=== PATIENT | male | born 1960 | race Caucasian/White ===

== ENCOUNTER 2017-12-06 12:28 | Emergency (ER) | payer OTHER ==
[2017-12-06 13:14] LABS: ABSOLUTE BASOPHILS # (AUTO) 0.1 10^3/uL (0.0-0.2); ABSOLUTE MONOCYTES (AUTO) 0.8 10^3/uL (0.1-1.4); ABSOLUTE NEUT (AUTO) 9.4 10^3/uL (1.7-8.2); BASOPHILS % (AUTO) 0.5 % (0-2); EOSINOPHILS % (AUTO) 0.2 % (0-6); HEMATOCRIT 43.1 % (37.9-51.0); HEMOGLOBIN 14.2 g/dL (13.5-17.0); MEAN CORPUSCULAR HEMOGLOBIN 31.2 pg (27.0-33.4); MEAN CORPUSCULAR VOLUME 95 fl (80-97); MONOCYTES % (AUTO) 7.3 % (3-13); PLATELET COUNT 258 10^3/uL (150-450); RED BLOOD COUNT 4.55 10^6/uL (4.35-5.55); RED CELL DISTRIBUTION WIDTH 13.3 % (11.5-14.0); TOTAL CELLS COUNTED % (AUTO) 100 %; WHITE BLOOD COUNT 11.3 10^3/uL (4.0-10.5)
[2017-12-06 13:18] LABS: ALANINE AMINOTRANSFERASE 38 U/L (21-72); ALKALINE PHOSPHATASE 64 U/L (38-126); ANION GAP 6 (5-19); ASPARTATE AMINO TRANSFERASE 27 U/L (17-59); BILIRUBIN,DIRECT 0.1 mg/dL (0.0-0.4); BILIRUBIN,TOTAL 0.6 mg/dL (0.2-1.3); BLOOD UREA NITROGEN 23 mg/dL (7-20); CALCIUM 9.2 mg/dL (8.4-10.2); CARBON DIOXIDE 30 mmol/L (22-30); CHLORIDE 108 mmol/L (98-107); GLUCOSE 109 mg/dL (75-110); POTASSIUM 4.8 mmol/L (3.6-5.0); TOTAL PROTEIN 6.2 g/dL (6.3-8.2)
--- NOTE | 2017-12-06 13:25 | RADIOLOGY REPORT (SQ) ---
EXAM DESCRIPTION: CHEST SINGLE VIEW COMPLETED DATE/TIME: 12/06/2017 1:14 pm REASON FOR STUDY: syncope COMPARISON: None. EXAM PARAMETERS: NUMBER OF VIEWS: One view. TECHNIQUE: Single frontal radiographic view of the chest acquired. RADIATION DOSE: NA LIMITATIONS: None. FINDINGS: LUNGS AND PLEURA: No opacities, masses or pneumothorax. No pleural effusion. MEDIASTINUM AND HILAR STRUCTURES: No masses. Contour normal. HEART AND VASCULAR STRUCTURES: Heart normal in size. Normal vasculature. BONES: No acute findings. HARDWARE: Left dual lead pacer with leads overlying right atrium and right ventricle. OTHER: No other significant finding. IMPRESSION: NO ACUTE RADIOGRAPHIC FINDING IN THE CHEST. TECHNICAL DOCUMENTATION: JOB ID: [id number] [employer]- All Rights Reserved Reading location - IP/workstation name: [email or web address]
[2017-12-06] MEDS ORDERED: NORMAL SALINE 1000 ML 1,000 ML IV ONE (13:39)
--- NOTE | 2017-12-06 13:39 | ER Document Report ---
ED Syncope and Near Syncope - General Mode of Arrival: Medic Information source: Patient, Relative - at bedside TRAVEL OUTSIDE OF THE [place] IN LAST 30 DAYS: No <CECILY LARIOS - Last Filed: 12/06/17 13:39> <KASSANDRA WHEELER - Last Filed: 12/09/17 09:27> - General Chief Complaint: Syncope Stated Complaint: POSSIBLE SYNCOPE Time Seen by Provider: 12/06/17 12:59 Notes: Patient is a 56-year-old male on Brilinta and Aspirin secondary to DC (Sep 2015 ) that presents to the emergency department today with complaints of a nosebleed. Patient states that he had a nosebleed yesterday for approximately 40 minutes which stopped spontaneously. This morning when bending over the sink making his coffee at 0730 his nose began bleeding again. Patient states he was unable to get the bleeding to stop today with pinching and using ice so he went to an ENT doctor associated with [facility] on [address] prior to arrival. at bedside states that "the doctor said there was nothing definite bleeding but she cauterized the area that she thought was causing the bleeding which did stop it". Patient states that after this procedure he vomited up blood which the ENT stated was somewhat normal after having blood in the stomach along with lidocaine for the procedure. Patient states after vomiting he began feeling "flushed, woozy, and hot" and then had two syncopal episodes. states he became pale in color and his eyes rolled back during these episodes. states "they could not get a blood pressure" at the ENT office after these episodes. states when EMS arrived they stood the patient up and he was orthostatic but exact blood pressures are not available. Patient is adamant that he did not have any chest pain prior to, during, or after the syncopal events. Patient states that he feels completely back to baseline now. 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 denies: Fever EENT: See HPI, Other - nose bleed Cardiovascular: See HPI, Syncope, Lightheaded. denies: Chest pain Respiratory: No symptoms reported Gastrointestinal: See HPI, Vomiting Genitourinary: No symptoms reported Male Genitourinary: No symptoms reported Musculoskeletal: No symptoms reported Skin: No symptoms reported Hematologic/Lymphatic: No symptoms reported Neurological/Psychological: No symptoms reported -: Yes All other systems reviewed and negative <CECILY LARIOS - Last Filed: 12/06/17 13:39> Physical Exam <CECILY LARIOS - Last Filed: 12/06/17 13:39> <LIAMKASSANDRA Banda - Last Filed: 12/09/17 09:27> - Vital signs Vitals: Pulse Ox 96 12/06/17 12:28 - Notes Notes: Physical Exam: General: Alert, appears well. HEENT: Normocephalic. Atraumatic. PERRL. Extraocular movements intact. Oropharynx clear. Neck: Supple. Non-tender. Respiratory: No respiratory distress. Clear and equal breath sounds bilaterally. Cardiovascular: Regular rate and rhythm. Abdominal: Normal Inspection. Non-tender. No distension. Normal Bowel Sounds. Back: Non-tender. No deformity or step off. Extremities: Moves all four extremities. Upper extremities: Normal inspection. Normal ROM. Lower extremities: Normal inspection. No edema. Normal ROM. Neurological: Normal cognition. AAOx4. Normal speech. Psychological: Normal affect. Normal Mood. Skin: Warm. Dry. Normal color. (CECILY LARIOS) Course - Laboratory Result Diagrams: 12/06/17 12:40 12/06/17 12:40 <CECILY LARIOS - Last Filed: 12/06/17 13:39> - Laboratory Result Diagrams: 12/06/17 12:40 12/06/17 12:40 - EKG Interpretation by Ne EKG shows normal: Sinus rhythm Rate: Normal <LIAMKASSANDRA Banda - Last Filed: 12/09/17 09:27> - Re-evaluation Re-evalutation: 12/06/17 18:16 2 serial troponins negative with EKG showing no concerning findings. Patient is ambulated in the emergency department and states he is asymptomatic. I did discuss return precautions. (KASSANDRA WHEELER) - Vital Signs Vital signs: Temp Pulse Resp BP Pulse Ox 19 148/92 H 99 12/06/17 17:01 12/06/17 17:01 12/06/17 17:01 - Laboratory Laboratory results interpreted by me: 12/06/17 12/06/17 12:40 12:40 WBC 11.3 H Seg Neutrophils % 83.0 H Lymphocytes % 9.0 L Absolute Neutrophils 9.4 H Chloride 108 H BUN 23 H Total Protein 6.2 L Discharge <CECILY LARIOS - Last Filed: 12/06/17 13:39> <KASSANDRA WHEELER - Last Filed: 12/09/17 09:27> - Discharge Clinical Impression: Epistaxis Syncope Qualifiers: Syncope type: vasovagal syncope Qualified Code(s): R55 - Syncope and collapse Disposition: HOME, SELF-CARE Instructions: Nosebleed Instructions ([facility]), Syncopal Episode ([facility]) Referrals: NKECHI SINGH MD [Primary Care Provider] - Follow up as needed Scribe Attestation: 12/09/17 09:26 I personally performed the services described in the documentation, reviewed and edited the documentation which was dictated to the scribe in my presence, and it accurately records my words and actions. (KASSANDRA WHEELER) Scribe Documentation - Scribe Written by Elroy:: Elroy Regalado, 12/06/2017 1355 acting as scribe for :: Liam <CECILY LARIOS - Last Filed: 12/06/17 13:39>
[2017-12-06 18:33] VITALS: BP 148/92
--- NOTE | 2017-12-06 19:04 | EKG REPORT ---
SEVERITY:- OTHERWISE NORMAL ECG - SINUS OR ECTOPIC ATRIAL RHYTHM : Confirmed by: Chente Mendez MD 06-Dec-2017 19:04:04
== END 2017-12-06 18:33 | disposition home or self-care (01) ==
LOC: ER 12:28
DX: R55 Syncope and collapse (principal); R04.0 Epistaxis; I25.2 Old myocardial infarction; I25.10 Atherosclerotic heart disease of native coronary artery without angina pectoris; I10 Essential (primary) hypertension
CPT/HCPCS: 36415; 71045; 80053; 83735; 84484; 85025; 93005; 93010; 99284

== ENCOUNTER 2018-07-15 01:05 | Emergency (ER) | payer OTHER ==
[2018-07-15] MEDS ORDERED: OXYMETAZOLINE HCL 0.05% NASAL SPRAY 15 ML BOTTLE NASL ONE (02:49)
--- NOTE | 2018-07-15 02:52 | ER Document Report ---
HPI - HPI Patient complains to provider of: Epistaxis Pain Level: Denies Context: Patient is a 57-year-old male presenting to the emergency department complaining of an epistaxis. Patient states epistaxis this started at 2200 hrs. this evening and he was unable to stop it. Patient states he placed a rolled up out of tissue paper in the left nares and presented to the emergency. Patient states he has not removed to the tissue paper from the left nares so he is unsure if it is still bleeding. Patient states he no longer feels the blood sliding down the back of his throat. Pt. states he does take baby ASA and Brilinta. Patient states in December he also presented with an epistaxis and went to [facility] for cauterization. Patient also states on Wednesday he presented to this facility for an epistaxis and the bleeding had resolved upon evaluation by provider. Patient states he was given phone numbers to follow-up with ENT. Patient states he called ENT but they have not returned his phone call. Patient states he had a full rhinoplasty in 2001 from complications of being at the [employer] on . Past medical history: Heart attack, stents, pacemaker, GERD, hyperlipidemia Medications: Aspirin, metoprolol, omeprazole, Brilinta Allergies: None Past Medical History - General Information source: Patient - Social History Smoking Status: Current Every Day Smoker Frequency of alcohol use: Social Lives with: Family Family History: Reviewed & Not Pertinent - Past Medical History Cardiac Medical History: Reports: Hx Coronary Artery Disease, Hx Heart Attack - Sep 2015, Hx Hypertension Renal/ Medical History: Denies: Hx Peritoneal Dialysis Past Surgical History: Reports: Hx Abdominal Surgery - colon resection, Hx Cardiac Catheterization - stent X 1, Hx Coronary Artery Bypass Graft, Hx Nose Surgery - rhinoplasty, Hx Orthopedic Surgery - colon resection, 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 No acute distress. HEAD: Normocephalic, atraumatic. EYES: Pupils equal, round, and reactive to light. Extraocular movements intact. Conjunctival palpebra pink ENT: Oral mucosa moist, tongue midline. Nares patent, no nasal septal hematoma, no active bleeding from either nares NECK: Full range of motion. Supple. Trachea midline. LUNGS: Clear to auscultation bilaterally, no wheezes, rales, or rhonchi. No respiratory distress. HEART: Regular rate and rhythm. No murmur ABDOMEN: Soft, non-tender. Non-distended. Bowel sounds present in all 4 quadrants. EXTREMITIES: Moves all 4 extremities spontaneously. No edema, normal radial and dorsalis pedis pulses bilaterally. No cyanosis. BACK: no cervical, thoracic, lumbar midline tenderness. No saddle anesthesia, normal distal neurovascular exam. NEUROLOGICAL: Alert and oriented x3. Normal speech. cranial nerves II through XII grossly intact. PSYCH: Normal affect, normal mood. SKIN: Warm, dry, normal turgor. No rashes or lesions noted. - INFECTION CONTROL TRAVEL OUTSIDE OF THE [place] IN LAST 30 DAYS: No Course - Re-evaluation Re-evalutation: 07/15/18 02:55 Rolled up tissue was removed from the left nares, there is no active bleeding at this time. Discussed using Afrin in the emergency room and follow-up with ENT. Patient and patient's agree with plan. - Vital Signs Vital signs: Temp Pulse Resp BP Pulse Ox 97.7 F 73 18 136/80 H 100 07/15/18 01:26 07/15/18 01:26 07/15/18 01:26 07/15/18 01:26 07/15/18 01:26 Discharge - Discharge Clinical Impression: Epistaxis Condition: Stable Disposition: HOME, SELF-CARE Instructions: Nosebleed Instructions ([facility]) Additional Instructions: As we discussed you should not blow your nose for the next 24 hours. You should also not place anything inside of the left naris. You should continue to follow-up with the ENT, you state you already have the phone numbers. Please return to the emergency room should you get lightheaded, dizzy, bleeding restarts. Referrals: NKECHI SINGH MD [Primary Care Provider] - Follow up as needed
[2018-07-15 02:53] VITALS: BP 130/80
== END 2018-07-15 03:40 | disposition home or self-care (01) ==
LOC: ER 01:05
DX: R04.0 Epistaxis (principal); F17.200 Nicotine dependence, unspecified, uncomplicated; I25.10 Atherosclerotic heart disease of native coronary artery without angina pectoris; I10 Essential (primary) hypertension
CPT/HCPCS: 99283; J3490